=== PATIENT | female | born 1980 | race Caucasian/White ===

== ENCOUNTER 2017-12-16 14:09 | Inpatient (IN) | payer OTHER ==
[~2017-12-16] VITALS: Ht 172.7 cm; Wt 163.4 kg
[~2017-12-16 14:09] MED LIST: CYCLOBENZAPRINE10 MG PO; HYDRODIURIL 2525 MG PO; PERCOCET 5-3251 EACH PO; VITAMIN D32000 I1 PO
[2017-12-16 15:48] LABS: ABSOLUTE BASOPHIL COUNT 0.1 /CUMM (0.0-0.2); ABSOLUTE EOSINOPHIL COUNT 0.2 /CUMM (0.0-0.7); ABSOLUTE GRANULOCYTE CT 10.8 /CUMM (1.4-6.5); ABSOLUTE LYMPH COUNT 1.8 /CUMM (1.2-3.4); ABSOLUTE MONOCYTE COUNT 1.1 /CUMM (0.10-0.60); BASOPHIL % 0.6 % (0.0-2.0); EOSINOPHIL % 1.3 % (0-5); GRANULOCYTE % 77.6 % (42.2-75.2); HEMATOCRIT 37.7 % (37-47); MEAN CORPUSCULAR HGB 24.4 PG (27.0-31.0); MEAN CORPUSCULAR HGB CONC 32.2 G/DL (33.0-37.0); MEAN CORPUSCULAR VOLUME 75.6 FL (81.0-99.0); MEAN PLATELET VOLUME 8.2 FL (7.4-10.4); PLATELET COUNT 493 /CUMM (130-400); RBC DISTRIBUTION WIDTH 17.2 % (11.5-14.5); RED BLOOD CELL CT 4.98 /CUMM (4.20-5.40)
[2017-12-16 15:56] LABS: PT 13.9 SEC (9.4-12.5); PTT 26 SEC (25-37)
--- NOTE | 2017-12-16 16:06 | ED GENERAL ADULT ---
History of Present Illness General Chief Complaint: General Adult Stated Complaint: SIB FOR FLUID ON LUNGS Source: patient Exam Limitations: no limitations Allergies Coded Allergies: Sulfa (Sulfonamide Antibiotics) (UNKNOWN 09/30/15) Uncoded Allergies: DUKAL SURGICAL TAPE (RASH 09/30/15) Reconcile Medications Aspirin (Ecotrin*) 81 MG TABLET. 1 TAB PO DAILY HEART/BLOOD (Reported) Cholecalciferol (Vitamin D3) (Vitamin D) 2,000 UNIT TABLET 1 TAB PO DAILY SUPPLEMENT (Reported) Hydrochlorothiazide 25 MG TABLET 1 TAB PO DAILY DIURETIC (Reported) Methocarbamol 500 MG TABLET 1 TAB PO BID MUSCLE RELAXER (Reported) Triage Note: PT STATES THAT HER DOCTOR TOLD HER SHE HAS FLUID IN HER LUNGS AND TO GO TO THE ER. HAD A CAT SCAN PRIOR TO COMING IN AND WHEN SHE GOT HOME THEY CALLED HER. DENIES ANY CP/SOB. NOTED WITH A COUGH WITH CLEAR PHLEGM. Triage Nurses Notes Reviewed? yes Onset: Gradual Duration: week(s): (3 months), constant, continues in ED, getting worse Timing: single episode today Injury Environment: home Severity: mild, moderate No Modifying Factors: none Associated Symptoms: cough LMP (ages 10-50): unknown : No Patient currently breastfeeds: No HPI: 36-year-old female history of hypertension presents for evaluation of an abnormal chest CT. Patient reports that she has been seeing her primary care doctor for a cough that has been present for about 3 months now. Patient had a normal outpatient chest x-ray and had a CT scan that showed evidence of possible pleural effusion so she was sent in for further evaluation. Her cough is been productive sometimes of clear sputum. She denies any pain or fever. No hemoptysis no chest pain no lower extremity edema. She is not diabetic. Denies any drug use or alcohol use. Treated with various cough suppressants and steroids without any improvement. (Pedro Smalls) Vital Signs & Intake/Output Vital Signs & Intake/Output Vital Signs Date Time Temp Pulse Resp B/P B/P Pulse O2 O2 Flow FiO2 Mean Ox Delivery Rate 12/16 2030 97.6 90 20 116/80 95 Room Air 12/16 1929 98.2 89 18 126/62 95 Room Air 12/16 1914 96 Room Air 12/16 1654 98.1 68 18 132/80 96 12/16 1430 97.5 94 16 123/81 96 Room Air (Margie KRAUS,Julio Lujan) Past History Travel History Traveled to [place] past 21 day No Medical History Any Pertinent Medical History? see below for history Neurological: NONE EENT: NONE Cardiovascular: hypertension Respiratory: NONE Gastrointestinal: NONE Hepatic: NONE Renal: NONE Musculoskeletal: NONE Psychiatric: NONE Endocrine: NONE Blood Disorders: NONE Cancer(s): NONE GRANULATOR TENDER/Reproductive: NONE Other Medical Hx: learning disabled History of MRSA: Yes History of VRE: No History of CDIFF: No Surgical History Surgical History: GASTRIC BYPASS Psychosocial History Who do you live with Family Services at Home None What is your primary language Maltese Tobacco Use: Never used Family History Hx Contributory? No (Pedro Smalls) Review of Systems Review of Systems Constitutional: Reports: no symptoms. EENTM: Reports: no symptoms. Respiratory: Reports: see HPI, cough, sputum production. Cardiovascular: Reports: no symptoms. GI: Reports: no symptoms. Genitourinary: Reports: no symptoms. Musculoskeletal: Reports: no symptoms. Skin: Reports: no symptoms. Neurological/Psychological: Reports: no symptoms. Hematologic/Endocrine: Reports: no symptoms. Immunologic/Allergic: Reports: no symptoms. All Other Systems: Reviewed and Negative (Pedro Smalls) Physical Exam Physical Exam General Appearance: well developed/nourished, no apparent distress, alert, awake , obese Head: atraumatic, normal appearance Eyes: Bilateral: normal appearance, PERRL, EOMI. Ears, Nose, Throat: normal pharynx, normal ENT inspection, hearing grossly normal Neck: normal inspection, supple, full range of motion Respiratory: normal breath sounds, chest non-tender, no respiratory distress, lungs clear Cardiovascular: regular rate/rhythm, normal peripheral pulses Peripheral Pulses: 2+ radial (R), 2+ radial (L) Gastrointestinal: normal bowel sounds, soft, non-tender, no organomegaly Back: normal inspection, normal range of motion Extremities: normal inspection, normal range of motion, no edema Neurologic/Psych: no motor/sensory deficits, awake, alert, oriented x 3, normal gait, normal mood/affect Skin: intact, normal color, warm/dry Core Measures ACS in differential dx? No CVA/TIA Diagnosis: No Sepsis Present: No Sepsis Focused Exam Completed? No (Pedro Smalls) Progress Differential Diagnoses I considered the following diagnoses in my evaluation of the patient: [Pneumonia , PE, pleural effusion, empyema, liver abscess, bronchitis, malignancy] Diagnostic Imaging: Viewed by Me: CT Scan, Ultrasound. Discussed w/RAD: CT Scan, Ultrasound. Radiology Impression: PATIENT: KATELYNN BROWN PRESENT AGE: 36 PATIENT ACCOUNT NO: [id number] : 78 LOCATION: ER ORDERING PHYSICIAN: Pedro FOLEY SERVICE DATE: 12/16/17160 EXAM TYPE: US - US-CHEST EXAMINATION: US right chest CLINICAL INFORMATION: 36-year-old female with loculated pleural effusion. Ultrasound analysis requested to evaluate for possible intervention modality. COMPARISON: Same day chest CT TECHNIQUE: Grayscale imaging was obtained of the right chest. Examination limited secondary to patient body habitus. FINDINGS: known right lateral loculated pleural effusion was poorly delineated on ultrasound imaging of the chest. IMPRESSION: Known right loculated pleural effusion was poorly delineated on ultrasound imaging. Drain placement will likely be performed utilizing cross- sectional imaging. Findings discussed with Pedro Reno in the emergency department. DICTATED BY: Quincy Samuels MD DATE/TIME DICTATED:12/16/171642 RESOURCE ENGINEER:FATEMEH DATE/TIME TRANSCRIBED:12/16/171642 CONFIDENTIAL, DO NOT COPY WITHOUT APPROPRIATE AUTHORIZATION. <Electronically signed in Other Vendor System> SIGNED BY: Quincy Samuels MD 12/16/171656, PATIENT: KATELYNN BROWN PRESENT AGE: 36 PATIENT ACCOUNT NO: [id number] : 78 LOCATION: [facility]CT ORDERING PHYSICIAN: Marimar Robledo APRN SERVICE DATE: 12/16/171230 EXAM TYPE: CAT - CT CHEST W IV CONTRAST EXAMINATION: CT CHEST WITH CONTRAST CLINICAL INFORMATION: Follow-up abnormal chest x-ray. Loculated right-sided pleural effusion vs. pleural-based mass COMPARISON: 12/07/2017. Ultrasound 07/24/2015. TECHNIQUE: Multidetector volumetric CT imaging of the chest was obtained after the administration of 94 mL of Optiray 320 intravenous contrast without immediate adverse reactions. Axial MIP volume rendering provided. Sagittal and coronal reformatted images were obtained. DLP: 844 mGy-cm FINDINGS: KEYBOARD ACTION ASSEMBLER: No additional findings. LUNGS: There is peripheral and basilar atelectasis in the right lung. The left lung is well-expanded and clear. MEDIASTINUM: There are abnormally enlarged superior mediastinal lymph nodes, the largest measuring 1.8 x 1.3 cm. Additional smaller lymph nodes are seen more superiorly, for example image 10/65. There is a prominent subcarinal lymph node measuring 2.3 x 1 cm. No definite hilar lymphadenopathy. Abnormal epicardial lymph nodes are seen as well. PLEURA: Small right pleural effusion is seen layering posteriorly. In addition, there is a loculated right pleural effusion with visceral and parietal pleural enhancement that measures 4.6 x 13.2 cm transaxially, 14 cm craniocaudal, from the level of the right main pulmonary artery to the right lateral costophrenic sulcus. AXILLA: No lymphadenopathy. UPPER ABDOMEN: There is an abnormal appearance along the peripheral margin of the liver. There is a 5 x 3.5 cm rim- enhancing, centrally fluid density lesion suggesting a subcapsular hepatic collection, for example image 43/65. There is ill-defined low density/ hypoenhancement of the subjacent liver which is scalloped by the abnormality. More inferiorly, there is a separate elongated 7.2 x 3.5 cm or fully rim- enhancing centrally low density collection which also scallops the margin of the liver as well. Liver is enlarged, measuring over 16 cm craniocaudal. Number surgical clips are seen in the epigastrium/left upper quadrant. The spleen is not completely visualized but I suspect that it is enlarged. OSSEOUS STRUCTURES: Degenerative changes. No acute osseous abnormality. IMPRESSION: There is loculated right lateral pleural fluid with parietal and visceral pleural enhancement suspicious for an empyema. The fluid has greater than simple fluid density. In addition, below the right hemidiaphragm, there are 2 rim-enhancing fluid collections scalloping the margin of the right lobe of the liver concerning for abscesses. There appears to be adjacent hepatic edema. It seems more likely that the empyema is secondary to the suspected perihepatic abscess, less likely an empyema progressed subdiaphragmatically. Recommend correlation with physical exam and clinical history. Alternative etiology for the findings could be endometriosis in the appropriate clinical setting. There are enlarged lymph nodes in the superior mediastinum as well as prominent epicardial lymph nodes, presumably reactive. The findings and recommendations were discussed with Ivonne Brand RN assisting and taking a message for Marimar Robledo MD by telephone at 12/16/2017 1:53 PM. DICTATED BY: Burak Lozano MD DATE/TIME DICTATED:1334 RESOURCE ENGINEER:FATEMEH DATE/TIME TRANSCRIBED:12/16/171334 CONFIDENTIAL, DO NOT COPY WITHOUT APPROPRIATE AUTHORIZATION. <Electronically signed in Other Vendor System> SIGNED BY: Burka Lozano MD 12/16/17 1400 Initial ED EKG: normal sinus rhythm, no ST T wave changes (Rowdy FOLEY,Pedro) Plan of Care: Orders Procedure Date/time Status Nothing by Mouth 12/[address] TUBE PLACEMENT 12/17 165 Active CBC WITHOUT DIFFERENTIAL 12/17 599 Active BASIC ELECTROLYTES PLUS BUN&CR 12/17 599 Active Heart Healthy Diet 12/16 D Complete Weight 12/16 2041 Active Vital Signs 12/16 2041 Active Teach/Educate 12/16 2041 Active Pain Treatment and Response 12/16 2041 Active Nutritional Intake, Monitor 12/16 2041 Active Isolation 12/16 2041 Active Intake & Output 12/16 2041 Active Patient Care Conference 12/16 2041 Active Activity/Ambulation 12/16 2041 Active Change service to 12/17 1999 Active Pathway - chart 12/16 183 Active House Staff 12/16 1838 Active Patient Data 12/16 1838 Active Intake & Output 12/16 1753 Active Patient Data 12/16 1751 Active URINALYSIS 12/16 1749 Complete Misc Message 12/16 1748 Active ED Holding Orders 12/16 1748 Active Admit to inpatient 12/16 1748 Active Vital Signs 12/16 1748 Active Code Status 12/16 1748 Active LACTIC ACID 12/16 1733 Active EKG 12/16 1711 Active EKG 12/16 1606 Active Add-on Test (ER Only) 12/16 1521 Active HUMAN BETA HCG SCREEN 12/16 1510 Complete B-TYPE NATRIURETIC PEP (BNP) 12/16 1510 Complete BLOOD CULTURE 12/16 1433 Active PARTIAL THROMBOPLASTIN TIME 12/16 1433 Complete PROTHROMBIN TIME 12/16 1433 Complete LACTIC ACID 12/16 1433 Complete COMPREHENSIVE METABOLIC PANEL 12/16 1433 Complete CBC WITHOUT DIFFERENTIAL 12/16 1433 Complete VTE Mechanical Prophylaxis 12/16 UNK Active Current Medications Sig/Bj Start time Last Medication Dose Stop Time Status Admin Cholecalciferol 1,000 IU DAILY 12/17 0900 AC (Vitamin D) Hydrochlorothiazide 25 MG DAILY 12/17 0900 AC (Hydrodiuril) Ceftazidime 2,000 MG IQ8 12/17 0000 CAN (Fortaz) Vancomycin HCl 1,000 MG Q12 12/16 2100 CAN Sodium Chloride 250 ML (Normal Saline 0.9%) Acetaminophen 650 MG Q6PRN PRN 12/16 184 AC (Tylenol) Cyclobenzaprine HCl 10 MG TID PRN 12/16 184 AC (Flexeril 10MG Tab) Guaifenesin 10 ML Q4P PRN 12/16 184 AC (Robitussin) Laboratory Tests 12/16/17 1740: Urine Color YEL, Urine Clarity CLEAR, Urine pH 7.0, Ur Specific [place] 1.010, Urine Protein NEG, Urine Ketones TRACE H, Urine Nitrite NEG, Urine Bilirubin NEG, Urine Urobilinogen 1.0, Ur Leukocyte Esterase NEG, Ur Microscopic EXAM NOT REQUIRED, Urine Hemoglobin NEG, Urine Glucose NEG 12/16/17 1510: Anion Gap 12, Estimated GFR > 60, BUN/Creatinine Ratio 18.6, Glucose 105 H, Lactic Acid 0.9, Calcium 9.2, Total Bilirubin 0.5, AST 15, ALT 27, Alkaline Phosphatase 149 H, Tqp-M-Owavlsnrrec Pept 213 H, Total Protein 7.8, Albumin 3.6, Globulin 4.2, Albumin/Globulin Ratio 0.9 L, Total Beta HCG NEGATIVE, PT 13.9 H, INR 1.27 H, APTT 26, CBC w Diff NO MAN DIFF REQ, RBC 4.98, MCV 75.6 L , MCH 24.4 L, MCHC 32.2 L, RDW 17.2 H, MPV 8.2, Gran % 77.6 H, Lymphocytes % 12.7 L, Monocytes % 7.8, Eosinophils % 1.3, Basophils % 0.6, Absolute Granulocytes 10.8 H, Absolute Lymphocytes 1.8, Absolute Monocytes 1.1 H, Absolute Eosinophils 0.2, Absolute Basophils 0.1 Microbiology 12/16 1734 BLOOD: Blood Culture - RECD 12/16 1509 BLOOD: Blood Culture - RECD Patient is here with an abnormal chest CT. The CT scan suggest empyema and right-sided pleural effusion as well as possible liver abscess. Basic blood work and blood cultures were obtained. Patient has a white count of 14,000. Vital signs are stable. She has no shortness of breath or pain. She is not diabetic. Spoke with Dr. Samuels from interventional radiology. He recommends getting a chest ultrasound to evaluate the possibility of ultrasound guided drainage that after the results of this he feels he'll need a CT guided drainage. Spoke with Dr. broderick from infectious disease who recommends holding off on antibiotics until a culture is obtained from the abscesses and thoracentesis. Patient will be admitted to the hospital for further evaluation and treatment. She'll require IV antibiotics interventional radiology infectious disease serial labs follow-up cultures. Case discussed Dr. Hanson he agrees. (Pedro Smalls) (Julio Hanson MD) Departure Departure Disposition: STILL A PATIENT Condition: Stable Clinical Impression Primary Impression: Empyema Secondary Impressions: Liver abscess Referrals: Marimar Robledo APRN (PCP/Family) Departure Forms: Customer Survey General Discharge Information Admission Note Spoke With: Khoi KRAUS,Constanza Documentation of Exam: Documentation of any treatments & extenuating circumstances including Concerns Regarding Discharge (functional status, medication knowledge or non-compliance, living conditions, etc.) that warrant an admission rather than observation: [IV antibiotics interventional radiology infectious disease serial labs follow-up cultures] (Pedro Smalls) PA/FIELD SALES REPRESENTATIVE Co-Sign Statement Statement: ED Attending supervision documentation- [] I saw and evaluated the patient. I have also reviewed all the pertinent lab results and diagnostic results. I agree with the findings and the plan of care as documented in the PA's/FIELD SALES REPRESENTATIVE's documentation. [X] I have reviewed the ED Record and agree with the PA's/FIELD SALES REPRESENTATIVE's documentation. [] Additions or exceptions (if any) to the PAs/FIELD SALES REPRESENTATIVE's note and plan are summarized below: [] (Margie KRAUS,Julio Lujan) Critical Care Note Critical Care Note Critical Care Time: non-applicable (Pedro Smalls)
--- NOTE | 2017-12-16 16:57 | ULTRASOUND REPORT ---
EXAMINATION: US right chest CLINICAL INFORMATION: 36-year-old female with loculated pleural effusion. Ultrasound analysis requested to evaluate for possible intervention modality. COMPARISON: Same day chest CT TECHNIQUE: Grayscale imaging was obtained of the right chest. Examination limited secondary to patient body habitus. FINDINGS: known right lateral loculated pleural effusion was poorly delineated on ultrasound imaging of the chest. IMPRESSION: Known right loculated pleural effusion was poorly delineated on ultrasound imaging. Drain placement will likely be performed utilizing cross-sectional imaging. Findings discussed with Pedro Reno in the emergency department.
--- NOTE | 2017-12-16 18:00 | History & Physical ---
Pedro Manzano MD 12/16/17 1800: General Information and HPI History of Present Illness: Ms. Frederick is a 36-year-old female with past medical history of hypertension, gastric bypass, and cholecystectomy who presents with productive cough. Patient has had a productive cough for many months now and her primary care doctor ordered a CT scan today. The results came back revealing an empyema with perihepatic abscess that she was sent in for further evaluation. Besides the cough, she has some shortness of breath with exertion but no fever, chills, night sweats, no pain, nausea, vomiting, dysuria, or chest pain. She is a never smoker, denies alcohol or drug use. Allergies/Medications Allergies: Coded Allergies: Sulfa (Sulfonamide Antibiotics) (UNKNOWN 09/30/15) Uncoded Allergies: DUKAL SURGICAL TAPE (RASH 09/30/15) Past History Travel History Traveled to [place] past 21 day No Medical History Neurological: NONE EENT: NONE Cardiovascular: hypertension Respiratory: NONE Gastrointestinal: NONE Hepatic: NONE Renal: NONE Musculoskeletal: NONE Psychiatric: NONE Endocrine: NONE Blood Disorders: NONE Cancer(s): NONE ARTS AND SCIENCES DEAN/Reproductive: NONE Other Medical Hx: learning disabled History of MRSA: Yes History of VRE: No History of CDIFF: No Surgical History Surgical History: GASTRIC BYPASS Past Family/Social History Psychosocial History Services at Home: None Review of Systems Review of Systems Constitutional: Reports: no symptoms. EENTM: Reports: no symptoms. Cardiovascular: Reports: no symptoms. Respiratory: Reports: see HPI. GI: Reports: no symptoms. Genitourinary: Reports: no symptoms. Musculoskeletal: Reports: no symptoms. Skin: Reports: no symptoms. Neurological/Psychological: Reports: no symptoms. Hematologic/Endocrine: Reports: no symptoms. Immunologic/Allergic: Reports: no symptoms. All Other Systems: Reviewed and Negative Exam & Diagnostic Data Last 24 Hrs of Vital Signs/I&O Vital Signs Date Time Temp Pulse Resp B/P B/P Pulse O2 O2 Flow FiO2 Mean Ox Delivery Rate 12/16 1654 98.1 68 18 132/80 96 12/16 1430 97.5 94 16 123/81 96 Room Air Physical Exam General Appearance Alert, Oriented X3, Cooperative, No Acute Distress Cardiovascular Regular Rate, Normal S1, Normal S2 Lungs difficult to auscultate given body habitus Abdomen Normal Bowel Sounds, Soft, No Tenderness Extremities edematous Last 24 Hrs of Labs/John: Laboratory Tests 12/16/17 1740: Urine Color YEL, Urine Clarity CLEAR, Urine pH 7.0, Ur Specific [place] 1.010, Urine Protein NEG, Urine Ketones TRACE H, Urine Nitrite NEG, Urine Bilirubin NEG, Urine Urobilinogen 1.0, Ur Leukocyte Esterase NEG, Ur Microscopic EXAM NOT REQUIRED, Urine Hemoglobin NEG, Urine Glucose NEG 12/16/17 1510: Anion Gap 12, Estimated GFR > 60, BUN/Creatinine Ratio 18.6, Glucose 105 H, Lactic Acid 0.9, Calcium 9.2, Total Bilirubin 0.5, AST 15, ALT 27, Alkaline Phosphatase 149 H, Xyd-M-Jekpitqlidz Pept 213 H, Total Protein 7.8, Albumin 3.6, Globulin 4.2, Albumin/Globulin Ratio 0.9 L, Total Beta HCG NEGATIVE, PT 13.9 H, INR 1.27 H, APTT 26, CBC w Diff NO MAN DIFF REQ, RBC 4.98, MCV 75.6 L , MCH 24.4 L, MCHC 32.2 L, RDW 17.2 H, MPV 8.2, Gran % 77.6 H, Lymphocytes % 12.7 L, Monocytes % 7.8, Eosinophils % 1.3, Basophils % 0.6, Absolute Granulocytes 10.8 H, Absolute Lymphocytes 1.8, Absolute Monocytes 1.1 H, Absolute Eosinophils 0.2, Absolute Basophils 0.1 Microbiology 12/16 1735 BLOOD: Blood Culture - RECD 12/16 151 BLOOD: Blood Culture - RECD Assessment/Plan Assessment: Ms. Frederick is a 36-year-old female with past medical history of hypertension, gastric bypass, and cholecystectomy who presents with productive cough. On presentation, vital signs were T 97.5, HR 94, RR 16, BP 123/81, saturating 96 % on room air. Laboratories were significant for white blood cell count 14.0, RR 93, come dioxide 31, glucose 105, INR 1.27. Chest CT showed a loculated right lateral pleural fluid with parietal and visceral pleural enhancement suspicious for an empyema and below the right hemidiaphragm, there are 2 rim-enhancing fluid collections scalloping the margin of the right lobe of the liver concerning for abscesses. She'll be admitted to general medicine and treated for following problems: 1. Empyema 2. Perihepatic abscesses #Empyema/Perihepatic abscesses: The patient presents with market findings of a empyema and perihepatic abscess. The origin is unclear at this time. Regardless, we will have to drain this and treat appropriately. -Follow off antibiotics. -Blood/sputum cultures -ID consult -Thoracic surgery consult -IR consult -Hold aspirin -Nothing by mouth after midnight #Chronic medical problem: -Continue other home medications DVT prophylaxis with ALPS Heart healthy diet Full code As Ranked By This Provider Problem List: 1. Liver abscess 2. Empyema Core Measures/Misc (02/28) Acute Coronary Syndrome ACS Diagnosis: No Congestive Heart Failure Congestive Heart Failure Diagnosis No Cerebrovascular Accident CVA/TIA Diagnosis: No VTE (View Protocol) VTE Risk Factors Age>40 No Mechanical VTE Prophylaxis d/t N/A MechProphylax Ordered No VTE Pharm Prophylaxis d/t Surgical Contraindication Sepsis (View protocol) Sepsis Present: No If YES complete Sepsis Event Note If YES complete Sepsis Event Note Shelly Lanza MD 12/17/17 0224: General Information and HPI Allergies/Medications Home Med list Aspirin (Ecotrin*) 81 MG TABLET.DR 1 TAB PO DAILY HEART/BLOOD (Reported) Cholecalciferol (Vitamin D3) (Vitamin D) 2,000 UNIT TABLET 1 TAB PO DAILY SUPPLEMENT (Reported) Hydrochlorothiazide 25 MG TABLET 1 TAB PO DAILY DIURETIC (Reported) Methocarbamol 500 MG TABLET 1 TAB PO BID MUSCLE RELAXER (Reported) Core Measures/Misc (02/28) Sepsis (View protocol) If YES complete Sepsis Event Note If YES complete Sepsis Event Note Attending MD Review Statement Attending Statement Attending MD Statement: examined this patient, discuss w/resident/PA/KNOTTING MACHINE OPERATOR, agreed w/resident/PA/KNOTTING MACHINE OPERATOR, reviewed EMR data (avail) Attending Assessment/Plan: 36F PMH hypertension, gastric bypass, with a several month history of dry cough presenting with a several month history of persistent dry cough, sent for CT by her PCP, found to have right sided empyema and liver lesion suggestive of abscess. Denies fever, chills, meningeal signs, chest pain, palpitations, abdominal pain, weight loss. No recent travel or sick contacts. Has been more short of breath and fatigued but otherwise well. Chest ultrasound done in ER shows right sided loculated effusion. Decreased breath sounds on the right, normal left, normal cardiac exam, soft abdomen. 1. Right loculated empyema 2. Liver abscess Plan - Admit to general medicine - NPO - Hold off antibiotics for now until culture - Send blood and sputum cultures - IR for thoracentesis and liver abscess drainage - Cardiothoracic surgery for intra-pleural tPA vs VATS - Continue home medications - DVT PPx - Hold ASA
[2017-12-16] MEDS ORDERED: HYDROCHLOROTHIA25 M1 PO (20:21)
[2017-12-16] MEDS ORDERED: METHOCARBAMOL500 M1 PO (20:21)
[2017-12-16] MEDS ORDERED: ASPIRIN EC81 M1 PO (20:22)
[2017-12-16] MEDS ORDERED: VITAMIN D2000 UNI1 PO (20:22)
[2017-12-16 20:30] VITALS: BP 116/80
[2017-12-16 21:49] VITALS: BP 116/80
--- NOTE | 2017-12-17 02:26 | Admission Certification ---
Admission Certification Certification Statement - As attending physician, I certify that at the time of - admission, based on clinical presentation, severity of - symptoms, need for further diagnostic testing and - therapeutic interventions, and risk of adverse outcomes - without in-hospital treatment, in my clinical assessment, - this patient requires an acute hospital stay for a minimum - of two nights or longer. I have also considered psychsocial - factors such as support system, advanced age, financial - issues, cognitive issues, and failed out-patient treatments, - past re-admission history, safety of patient, and lack of - compliance as applicable. Specific rationale supporting this admission is: Empyema and liver abscess
[2017-12-17 06:21] VITALS: BP 126/76
--- NOTE | 2017-12-17 08:02 | PN- Housestaff ---
Kristen Ellis 12/17/17 0801: Subjective Follow-up For: right lung empyema and perihepatic abscesses Complaints: no complaints Subjective: No acute events overnight. Patient has no complaints. Denies fever, chills, chest pain, shortness of breath, abdominal pain. She reports continued cough without sputum production. Review of Systems Constitutional: Reports: see HPI. Objective Last 24 Hrs of Vital Signs/I&O Vital Signs Date Time Temp Pulse Resp B/P B/P Pulse O2 O2 Flow FiO2 Mean Ox Delivery Rate 12/17 1129 98.0 89 20 126/76 07/06 0800 93 Room Air / 0621 98.0 89 20 126/76 93 07/05 2149 97.6 90 20 116/80 95 07/05 2030 97.6 90 20 116/80 95 Room Air 07/05 1929 98.2 89 18 126/62 95 Room Air / 1914 96 Room Air / 1654 98.1 68 18 132/80 96 /05 1430 97.5 94 16 123/81 96 Room Air Intake & Output 12/17 1600 06 0800 07/ 0000 Intake Total 0 210 Output Total 200 400 Balance -200 0 -190 Intake, IV 10 Intake, Oral 0 200 Number 1 0 Bowel Movements Output, Urine 200 400 Patient 360 lb 373 lb Weight Weight Bed scale Bed scale Measurement Method Physical Exam General Appearance: Alert, Oriented X3, Cooperative, No Acute Distress, morbidly obese Skin: No Rashes Skin Temp/Moisture Exam: Warm/Dry HEENT: Atraumatic, PERRLA Neck: Supple Cardiovascular: Regular Rate, Normal S1, Normal S2 Lungs: decreased breath sounds right base Abdomen: Soft, No Tenderness, obese Neurological: Normal Tone, Sensation Intact Extremities: No Edema, Normal Pulses Assessment/Plan Assessment: 36-year-old female with past medical history of hypertension, gastric bypass, and persistent cough for the past 4 months. She was asymptomatic all night and remain stable Problem List: 1. Right lung empyema and cody hepatic abscesses #Right lung empyema and cody hepatic abscesses: She had a CT chest done recommended by her PCP was found to have a right sided empyema and liver lesions suggestive of abscess. Chest ultrasound done in the ER showed right sided loculated effusion. She was admitted to the general medicine floor for further evaluation including possible IR drain and need for cardiothoracic surgery evaluation. [place]'s cardiothoracic surgeon is out of town and patient was referred to the on-call cardiothoracic surgeon; Dr. Almazan. He does not come to [place] and works out at [facility]. The decision was made to transfer the patient to [facility] for the entire course of her care. Problem List: 1. Morbid obesity 2. Liver abscess 3. Empyema Pain Ratin Pain Location: none Pain Goal: Remain pain free Pain Plan: see a/p Tomorrow's Labs & Rationales: none Oleksandr Zurita MD 12/17/17 1149: Attending MD Review Statement Attending Statement Attending MD Statement: examined this patient, discuss w/resident/PA/CRUISE AGENT, agreed w/resident/PA/CRUISE AGENT, reviewed EMR data (avail), discussed with nursing, discussed with case mgmt, reviewed images, amended to note Attending Assessment/Plan: The patient was seen and discussed with house staff, case management and nursing. Thoracic surgery is not available here at [place] and covering MD is at [facility] in [place]. He wishes transfer to [facility] for workup (including drainage). Will arrange. Dr. Ryan Almazan MD is the accepting MD.
[2017-12-17 08:09] LABS: ABSOLUTE BASOPHIL COUNT 0 /CUMM (0.0-0.2); ABSOLUTE EOSINOPHIL COUNT 0.2 /CUMM (0.0-0.7); ABSOLUTE GRANULOCYTE CT 8.4 /CUMM (1.4-6.5); ABSOLUTE LYMPH COUNT 1.2 /CUMM (1.2-3.4); ABSOLUTE MONOCYTE COUNT 1.1 /CUMM (0.10-0.60); BASOPHIL % 0.3 % (0.0-2.0); EOSINOPHIL % 1.7 % (0-5); HEMATOCRIT 32.8 % (37-47); MEAN CORPUSCULAR HGB 24.5 PG (27.0-31.0); MEAN CORPUSCULAR HGB CONC 32.2 G/DL (33.0-37.0); MEAN CORPUSCULAR VOLUME 75.9 FL (81.0-99.0); MEAN PLATELET VOLUME 8.4 FL (7.4-10.4); PLATELET COUNT 382 /CUMM (130-400); RBC DISTRIBUTION WIDTH 17.4 % (11.5-14.5); RED BLOOD CELL CT 4.33 /CUMM (4.20-5.40)
--- NOTE | 2017-12-17 09:40 | Discharge Summary ---
Visit Information Visit Dates Admission Date: 12/16/17 Discharge Date: 12/17/17 Hospital Course Course Attending Physician: Oleksandr Zurita MD Primary Care Physician: Venkat REYNOLDSMarimar [facility] Course: Ms. Frederick is a 36-year-old female with past medical history of hypertension, gastric bypass, and cholecystectomy who presented with productive cough. On presentation, vital signs were T 97.5, HR 94, RR 16, BP 123/81, saturating 96 % on room air. Laboratories were significant for white blood cell count 14.0, RR 93, come dioxide 31, glucose 105, INR 1.27. Chest CT showed a loculated right lateral pleural fluid with parietal and visceral pleural enhancement suspicious for an empyema and below the right hemidiaphragm, there are 2 rim-enhancing fluid collections scalloping the margin of the right lobe of the liver concerning for abscesses. She was admitted to general medicine and treated for following problems: 1. Empyema 2. Perihepatic abscesses #Empyema/Perihepatic abscesses: The patient presented with findings of a possible empyema and perihepatic abscess. The origin is unclear at this time. ID has evaluated and thinks that the cholecystectomy 2 years ago that was complicated by infection may have been smoldering. Because the patient is bariatric and the thoracic surgeon is at [facility] (Dr. Lr is on vacation), we will be transferring the patient for further care including drainage and antibiotics. We will be sending with her the imaging on a disc. Patient will remain n.p.o. and further care will be done under the direction of Dr. East. Family has been updated. #Chronic medical problem: Aspirin is being held pending drainage. Her other home medications were continued. Allergies: Coded Allergies: Sulfa (Sulfonamide Antibiotics) (UNKNOWN 09/30/15) Uncoded Allergies: DUKAL SURGICAL TAPE (RASH 09/30/15) Disposition Summary Disposition Principal Diagnosis: 1. Empyema Additional Diagnosis: 2. Perihepatic abscesses Discharge Disposition: other general hospital Discharge Instructions General Discharge Information Code Status: Full Code Patient's Diet: N.p.o. Patient's Activity: Hospitalized Follow-Up Instructions/Appts: Patient will have further care at [facility] and will receive discharge instructions there. Medications at Discharge Discharge Medications: Stop taking the following medications: Aspirin (Ecotrin*) 81 MG TABLET. ORAL DAILY Continue taking these medications: Methocarbamol (Methocarbamol) 500 MG TABLET 1 Tablet ORAL TWICE DAILY Qty = 60 Comments: NOT GIVEN Hydrochlorothiazide (Hydrochlorothiazide) 25 MG TABLET 1 Tablet ORAL DAILY Qty = 90 Comments: Last Taken: 12/17/17 Time: 08 Cholecalciferol (Vitamin D3) (Vitamin D) 2,000 UNIT TABLET 1 Tablet ORAL DAILY Comments: Last Taken: 12/17/17 Time: 08 Copies To: Quincy Samuels MD; Arvind KRAUS,Quincy Mcbride; Marimar Robledo APRN; Sam KRAUS, Anil Aflred; Norah KRAUS,Ryan Hernandez Attending MD Review Statement Documenting Attending: Oleksandr Zurita MD Other Findings: The patient was seen and discussed with house staff. To be transferred to [facility] for care under thoracic surgery (Dr. Lr not available).
--- NOTE | 2017-12-17 10:21 | Cons- Infect Disease ---
General Information and HPI Consulting Request Date of Consult: 12/17/17 Requested By: Oleksandr Zurita MD Reason for Consult: Rule out empyema and liver abscesses Source of Information: patient, old records History of Present Illness: This is a 36-year-old woman, morbidly obese, with a history of hypertension, status post gastric bypass 20 years prior to admission and a difficult laparoscopic cholecystectomy over 2 years prior to admission after a complicated hospitalization at [place] 2 months earlier for a perforated gallbladder, requiring a percutaneous cholecystostomy tube, which was removed at the time of her surgery, admitted on December 16 after she was sent to the emergency room by her primary care physician after a CT of the chest, performed earlier that day because of a chest x-ray 9 days earlier revealing a loculated right pleural effusion, confirmed the loculated effusion, with 2 rim-enhancing fluid collections in the right lobe of the liver. On admission she was afebrile. Laboratory data revealed a white blood cell count of 14,000, BUN/creatinine 13 and 0.7, alkaline phosphatase 149, INR 1.27. Urinalysis negative. She was followed off antibiotics and has remained afebrile overnight. Presently she feels well. She does report a cough, productive of white sputum, for the past 4 months, with no associated shortness of breath, chest pain, fevers or chills. She notes no abdominal pain but has had some nausea and diarrhea and does report a 20 pound weight loss over the past several months. She has had no recent travel and has no pets. She has no history of any TB exposure. Allergies/Medications Allergies: Coded Allergies: Sulfa (Sulfonamide Antibiotics) (UNKNOWN 09/30/15) Uncoded Allergies: DUKAL SURGICAL TAPE (RASH 09/30/15) Home Med List: Aspirin (Ecotrin*) 81 MG TABLET.DR 1 TAB PO DAILY HEART/BLOOD (Reported) Cholecalciferol (Vitamin D3) (Vitamin D) 2,000 UNIT TABLET 1 TAB PO DAILY SUPPLEMENT (Reported) Hydrochlorothiazide 25 MG TABLET 1 TAB PO DAILY DIURETIC (Reported) Methocarbamol 500 MG TABLET 1 TAB PO BID MUSCLE RELAXER (Reported) Past History Travel History Traveled to [place] past 21 day No Medical History Blood Transfusion Hx: No Neurological: NONE EENT: NONE Cardiovascular: hypertension Respiratory: NONE Gastrointestinal: NONE Hepatic: NONE Renal: NONE Psychiatric: NONE Endocrine: NONE Blood Disorders: NONE Cancer(s): NONE 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 Home Services at Home: None Smoking Status: Never Smoked Review of Systems Review of Systems All Other Systems: Reviewed and Negative Exam & Diagnostic Data Last 24 Hrs of Vital Signs/I&O Vital Signs Date Time Temp Pulse Resp B/P B/P Pulse O2 O2 Flow FiO2 Mean Ox Delivery Rate 12/17 0800 93 Room Air 12/17 0621 98.0 89 20 126/76 93 / 2149 97.6 90 20 116/80 95 07/05 2030 97.6 90 20 116/80 95 Room Air 07 1929 98.2 89 18 126/62 95 Room Air 12/16 1914 96 Room Air 12/16 1654 98.1 68 18 132/80 96 07/05 1430 97.5 94 16 123/81 96 Room Air Intake & Output 12/17 1600 12/17 0800 12/17 0000 Intake Total 0 210 Output Total 400 Balance 0 -190 Intake, IV 10 Intake, Oral 0 200 Number 0 Bowel Movements Output, Urine 400 Patient 360 lb 373 lb Weight Weight Bed scale Bed scale Measurement Method Physical Exam Other Physical Findings: She is awake and alert in no acute distress. She is afebrile. Skin reveals no rash. HEENT exam poor dentition. Neck is supple with no adenopathy. Chest mild asymmetry to the sternum. Lungs decreased breath sounds at the right base. Heart regular rhythm with no murmur. Abdomen is obese, soft, nontender with positive bowel sounds. Back no CVA tenderness. Extremities no cyanosis, clubbing or edema. Neuro is without focality. Last 24 Hours of Lab Results: Laboratory Tests 12/17 07 0705 1740 Chemistry Sodium (137 - 145 mmol/L) 138 Potassium (3.5 - 5.1 mmol/L) 4.2 Chloride (98 - 107 mmol/L) 98 Carbon Dioxide (22 - 30 mmol/L) 29 Anion Gap (5 - 16) 11 BUN (7 - 17 mg/dL) 9 Creatinine (0.5 - 1.0 mg/dL) 0.6 Estimated GFR (>60 ml/min) > 60 BUN/Creatinine Ratio (7 - 25 %) 15.0 Hematology CBC w Diff NO MAN DIFF REQ WBC (4.8 - 10.8 /CUMM) 11.0 H RBC (4.20 - 5.40 /CUMM) 4.33 Hgb (12.0 - 16.0 G/DL) 10.6 L Hct (37 - 47 %) 32.8 L MCV (81.0 - 99.0 FL) 75.9 L MCH (27.0 - 31.0 PG) 24.5 L MCHC (33.0 - 37.0 G/DL) 32.2 L RDW (11.5 - 14.5 %) 17.4 H Plt Count (130 - 400 /CUMM) 382 MPV (7.4 - 10.4 FL) 8.4 Gran % (42.2 - 75.2 %) 77.0 H Lymphocytes % (20.5 - 51.1 %) 11.0 L Monocytes % (1.7 - 9.3 %) 10.0 H Eosinophils % (0 - 5 %) 1.7 Basophils % (0.0 - 2.0 %) 0.3 Absolute Granulocytes (1.4 - 6.5 /CUMM) 8.4 H Absolute Lymphocytes (1.2 - 3.4 /CUMM) 1.2 Absolute Monocytes (0.10 - 0.60 /CUMM) 1.1 H Absolute Eosinophils (0.0 - 0.7 /CUMM) 0.2 Absolute Basophils (0.0 - 0.2 /CUMM) 0 Urines Urine Color (YEL,AMB,STR) YEL Urine Clarity (CLEAR) CLEAR Urine pH (5.0 - 8.0) 7.0 Ur Specific [place] (1.001 - 1.035) 1.010 Urine Protein (NEG,<30 MG/DL) NEG Urine Ketones (NEG) TRACE H Urine Nitrite (NEG) NEG Urine Bilirubin (NEG) NEG Urine Urobilinogen (0.1 - 1.0 EU/dl) 1.0 Ur Leukocyte Esterase (NEG) NEG Ur Microscopic EXAM NOT REQUIRED Urine Hemoglobin (NEG) NEG Urine Glucose (N MG/DL) NEG 12/16 12/16 1733 1510 Chemistry Sodium (137 - 145 mmol/L) 137 Potassium (3.5 - 5.1 mmol/L) 4.1 Chloride (98 - 107 mmol/L) 93 L Carbon Dioxide (22 - 30 mmol/L) 31 H Anion Gap (5 - 16) 12 BUN (7 - 17 mg/dL) 13 Creatinine (0.5 - 1.0 mg/dL) 0.7 Estimated GFR (>60 ml/min) > 60 BUN/Creatinine Ratio (7 - 25 %) 18.6 Glucose (65 - 99 mg/dL) 105 H Lactic Acid (0.7 - 2.1 mmol/L) Cancelled 0.9 Calcium (8.4 - 10.2 mg/dL) 9.2 Total Bilirubin (0.2 - 1.3 mg/dL) 0.5 AST (14 - 36 U/L) 15 ALT (9 - 52 U/L) 27 Alkaline Phosphatase (<127 U/L) 149 H Hcq-V-Wcnppzkhdsa Pept (<125 pg/mL) 213 H Total Protein (6.3 - 8.2 g/dL) 7.8 Albumin (3.5 - 5.0 g/dL) 3.6 Globulin (1.9 - 4.2 gm/dL) 4.2 Albumin/Globulin Ratio (1.1 - 2.2 %) 0.9 L Total Beta HCG (NEGATIVE) NEGATIVE Coagulation PT (9.4 - 12.5 SEC) 13.9 H INR (0.90 - 1.19) 1.27 H APTT (25 - 37 SEC) 26 Hematology CBC w Diff NO MAN DIFF REQ WBC (4.8 - 10.8 /CUMM) 14.0 H RBC (4.20 - 5.40 /CUMM) 4.98 Hgb (12.0 - 16.0 G/DL) 12.1 Hct (37 - 47 %) 37.7 MCV (81.0 - 99.0 FL) 75.6 L MCH (27.0 - 31.0 PG) 24.4 L MCHC (33.0 - 37.0 G/DL) 32.2 L RDW (11.5 - 14.5 %) 17.2 H Plt Count (130 - 400 /CUMM) 493 H MPV (7.4 - 10.4 FL) 8.2 Gran % (42.2 - 75.2 %) 77.6 H Lymphocytes % (20.5 - 51.1 %) 12.7 L Monocytes % (1.7 - 9.3 %) 7.8 Eosinophils % (0 - 5 %) 1.3 Basophils % (0.0 - 2.0 %) 0.6 Absolute Granulocytes (1.4 - 6.5 /CUMM) 10.8 H Absolute Lymphocytes (1.2 - 3.4 /CUMM) 1.8 Absolute Monocytes (0.10 - 0.60 /CUMM) 1.1 H Absolute Eosinophils (0.0 - 0.7 /CUMM) 0.2 Absolute Basophils (0.0 - 0.2 /CUMM) 0.1 Last 24 Hours of John Results: Blood cultures 2 December 16 negative Diagnostic Data Recent Imaging Findings: CT of the chest December 16 reveals loculated right lateral pleural fluid, with parietal and visceral enhancement, suspicious for an empyema, and 2 rim- enhancing fluid collections scalloping the margin of the right lobe of the liver , concerning for abscesses Assessment/Plan Assessment/Plan Impression: This is a 36-year-old woman, morbidly obese, status post a difficult laparoscopic cholecystectomy over 2 years prior to admission after a complicated hospitalization at [place] 2 months earlier for a perforated gallbladder, requiring a percutaneous cholecystostomy tube, which was removed at the time of her surgery, admitted on December [address] of the chest, performed earlier that day, revealed a loculated right pleural effusion and 2 rim-enhancing fluid collections in the right lobe of the liver. The liver lesions are suspicious for liver abscesses and suspect that these may be related to her previous episode of cholecystitis, which was apparently complicated, requiring a percutaneous cholecystostomy tube for several months. The loculated pleural effusion may represent an empyema, which would presumably be secondary to infection crossing the diaphragm, or may just be a sympathetic complicated effusion. The other possibility is that she has a pneumonia, complicated by an empyema (she does have poor dentition) with progression of the infection below the diaphragm into the liver, though this seems less likely. She will need drainage of the loculated pleural effusion and aspiration of at least one of the liver lesions, with drainage of the lesions if possible. As she is stable she can be followed off antibiotics pending this procedure, which is scheduled by IR for later today. Suggestion: 1. Obtain records from her previous hospitalization at [place] 2 years prior to admission 2. Await IR drainage of the loculated pleural effusion and aspiration/drainage of the liver lesions 3. Continue to follow off antibiotics pending above but, after the procedure, would begin Unasyn 3 g IV every 6 hours pending cultures Consult Acknowledgment - Thank you for your consult request.
[2017-12-17 11:29] VITALS: BP 126/76
--- NOTE | 2017-12-17 11:34 | Patient Discharge Instructions ---
Discharge Instructions General Discharge Information You were seen/treated for: Empyema and liver abscess Special Instructions: Patient is being transferred to [facility] and will receive further instruction there. Diet Continue normal diet: No Recommended Diet: NPO pending drainage Activity Full Activity/No Limits: No Additional ACTIVITY Info: Hospitalized Acute Coronary Syndrome Inclusion Criteria At DC or during hospital stay patient has or had the following: ACS DIAGNOSIS No Discharge Core Measures Meds if any: Prescribed or Continued at Discharge Meds if any: NOT Prescribed or Continued at Discharge Congestive Heart Failure Inclusion Criteria At DC or during hospital stay patient has or had the following: CHF DIAGNOSIS No Discharge Core Measures Meds if any: Prescribed or Continued at Discharge Meds if any: NOT Prescribed or Continued at Discharge Cerebrovascular accident Inclusion Criteria At DC or during hospital stay patient has or had the following: CVA/TIA Diagnosis No Discharge Core Measures Meds if any: Prescribed or Continued at Discharge Meds if any: NOT Prescribed or Continued at Discharge Venous thromboembolism Inclusion Criteria VTE Diagnosis No VTE Type NONE VTE Confirmed by (Test) NONE Discharge Core Measures - Per Current guidelines, there needs to be overlap - treatment for the first 5 days of Warfarin therapy. - If discharged on Warfarin prior to 5 days of - overlap therapy, the patient will need to be - assessed for post discharge needs including - *Post discharge parental anticoagulation - *Warfarin and/or parental anticoagulation education - *Follow up date to check INR post discharge At least 5 days overlap therapy as Inpatient No Meds if any: Prescribed or Continued at Discharge Note: Overlap Therapy is Warfarin and Anticoagulant Meds if any: NOT Prescribed or Continued at Discharge
== END 2017-12-17 14:24 | disposition short-term general hospital (02) | DRG 137 ==
LOC: ERH 14:09 → ERHI 17:48 → 2NB 17:48 → ENRESERV 18:12 → ENTRNSPT 20:17 → EDTRNSPT 20:19 → EDTRNSPTSTS 20:19 → EDBEDREQ 20:21 → 2NB 20:31 → CMPTRNSPT 20:38 → 2NB 22:39
PROVIDERS: Internal Medicine; Physician Assistant
DX: J86.9 Pyothorax without fistula (principal); K75.0 Abscess of liver; J90 Pleural effusion, not elsewhere classified; E66.01 Morbid (severe) obesity due to excess calories; Z68.43 Body mass index [BMI] 50.0-59.9, adult; I10 Essential (primary) hypertension; Z98.84 Bariatric surgery status; Z90.49 Acquired absence of other specified parts of digestive tract; Z88.2 Allergy status to sulfonamides; F81.9 Developmental disorder of scholastic skills, unspecified
CPT/HCPCS: 2NBP; 87075; 36592; 81003; 82436; 87040; 87070; 93005; 93010; J0713; Q9965